=== PATIENT | male | born 2000 ===

== ENCOUNTER 2022-07-26 18:02 | Emergency (ER) | payer OTHER, SELFPAY ==
--- NOTE | ~2022-07-26 | CT_ITS ---
EXAMINATION: CT abdomen pelvis w con DATE: 07/26/2022 19:16 INDICATION: abd pain TECHNIQUE: Computed tomography (CT) of the abdomen and pelvis was performed with 100 mL Omnipaque-350 intravenous contrast. Automated exposure control and iterative reconstruction technique were employe d. The dose-length product was 295.35 mGy-cm. COMPARISON: None. FINDINGS: Motion artifact in the lower abdomen. Lower thorax: Unremarkable Liver: Normal. Biliary/Gallbladder: Gallbladder is partially contracted. No bile duct dilation. Pancreas: No mass or duct dilation. Spleen: Normal. Adrenals:No mass. Kidneys: No mass, stone, or hydronephrosis. GI tract: No small or large bowel dilation. Normal appendix. Mesentery/Peritoneum: No ascites, mass, or free air. Retroperitoneum: No mass. Pelvis: Pelvic organs are within normal limits. Soft Tissues: Soft tissues and body wall unremarkable. Bones: No acute osseous finding. IMPRESSION: Study limited by motion artifact in the lower abdomen. Within that constraint, no definite acute abdo minopelvic process is detected. Reviewed, dictated and finalized at location [facility] IMPRESSION: Study limited by motion artifact in the lower abdomen. Within that constraint, no definite acute abdominopelvic process is detected.
[2022-07-26 18:04] VITALS: BP 136/74; PULSE 72; RESP 16; TEMP 36.2; O2SAT 100
--- NOTE | 2022-07-26 18:33 | ED.GENADULT ---
HPI - General Adult General Chief complaint: Abdominal Pain Stated complaint: bilateral side pain x 2-3 weeks Time Seen by Provider: 07/26/22 18:10 Source: RN notes reviewed History of Present Illness HPI narrative: Patient presents emergency department from home for bilateral side pain. He states has been having pain in his bilateral sides for the past 2 weeks. States the pain is aching in nature and does not radiate states that nothing seems to make the pain better but does note that it gets worse when he stands he denies any fevers or chills he denies any chest pain or shortness of breath denies any nausea vomiting diarrhea or any other symptoms states he has not taken anything for the pain Related Data Allergies Allergy/AdvReac Type Severity Reaction Status Date / Time No Known Allergies Allergy Mild Verified 07/26/22 18:42 Review of Systems Review of Systems: Gen.: Denies fevers or chills ENT: Denies congestion Respiratory: Denies shortness of breath or cough CV: Denies chest pain or palpitations GI: HPI denies burning, urgency, frequency or hematuria Musculoskeletal: Denies back pain or muscle pain Neuro: Denies numbness, tingling, weakness or focal weakness Skin: Denies rash Except as documented, all other systems reviewed and negative [facility] Past Medical History Medical History (Updated 07/26/22 @ 19:36 by Daniel Rose DO) Patient denies significant medical history Social History Social History Smoking status: Never smoker Alcohol intake: never Exam Narrative: APPEARANCE: No acute distress, nontoxic, resting in bed EYES: EOMI HEENT: Normocephalic, atraumatic, OMM RESPIRATORY: No respiratory distress Clear to auscultation bilaterally with no rhonchi wheezing or rales. CARDIOVASCULAR: Regular rate and rhythm without murmurs rubs or gallops. ABDOMINAL: Soft, nondistended nontender to palpation in the right lower quadrant, left lower quadrant, right upper quadrant and left upper quadrant tender to palpation in the bilateral lateral abdomen no flank tenderness no rebound or guarding Back: No midline thoracic or lumbar tenderness to palpation MUSCULOSKELETAl: Moves all extremities. No clubbing, cyanosis or edema. NEURO: Awake and alert. Following commands, speech normal, no focal deficits SKIN:: Warm, dry. No rashes lesions or abrasions PSYCHIATRIC: Normal affect/mood, Course Course Emergency Course: Patient states pain is resolved following medication Patient states that they are feeling much better at this time. States abdominal pain has resolved. Repeat abdominal exam shows the patient's abdomen to be soft and nontender. Discussed with patient results of workup and diagnosis. Discussed need for follow-up with primary care physician, reasons to return to the emergency department in proper use of medication. Patient understands and agrees to current treatment plan patient does have frequent issues with constipation and has been feeling more constipated recently we will give magnesium Vital Signs Vital signs: Vital Signs Temperature 97.2 F L 07/26/22 18:04 Pulse Rate 72 07/26/22 18:04 Respiratory Rate 16 07/26/22 18:04 Blood Pressure 136/74 07/26/22 18:04 Pulse Oximetry 100 07/26/22 18:04 Oxygen Delivery Room Air 07/26/22 18:04 Temperature 97.2 F L 07/26/22 18:04 Pulse Rate 72 07/26/22 18:04 Respiratory Rate 16 07/26/22 18:04 Blood Pressure 136/74 07/26/22 18:04 Pulse Oximetry 100 07/26/22 18:04 Oxygen Delivery Room Air 07/26/22 18:04 Medical Decision Making MDM Narrative Medical decision making narrative: Patient's abdomen is soft without significant pain or signs of surgical abdomen on serial exams. Lab and x-ray evaluations are reviewed and patient is felt to be a reasonable candidate for outpatient management. Patient was instructed as to limitations of x-ray and laboratory evaluation and enco
[2022-07-26] MEDS: KETOROLAC 30 MG/ML VIAL (*BKC) IV PUSH (18:41)
[2022-07-26] MEDS: SODIUM CHLORIDE 0.9% IV 1,000 ML 999 ML IV CONT (18:41)
[2022-07-26 18:45] LABS: Basophils Absolute Auto 0.1 K/mm3 (0.0-0.1); Basophils Percent Auto 0.9 % (0.2-1.2); Eosinophils Absolute Auto 0.2 K/mm3 (0-0.3); Eosinophils Percent Auto 3.5 % (0-4.4); Hematocrit 44.1 % (42.0-52.0); Hemoglobin 15.3 g/dL (14.0-18.0); Immature Granulocyte Absolute 0.01 K/mm3 (0.00-0.031); Immature Granulocyte Percent A 0.2 % (0-0.5); Lymphocytes Absolute Auto 2.49 K/mm3 (0.9-3.2); Lymphocytes Percent Auto 39.1 % (18.3-44.2); Mean Corpuscular HGB Conc 34.7 g/dl (32-36); Mean Corpuscular Hemoglobin 31.2 pg (26-34); Mean Corpuscular Volume 89.8 fl (80-100); Mean Platelet Volume 9.8 fl (7.4-10.4); Monocytes Absolute Auto 0.6 K/mm3 (0.1-0.6); Monocytes Percent Auto 8.8 % (2.6-8.5); Neutrophils Percent Auto 47.5 % (45.5-73.1); Platelet Count Result 268 k/mm3 (150-375); Red Blood Count 4.91 M/mm3 (4.6-6.20); Red Cell Distribution Width 11.8 % (11.5-14.5); White Blood Count 6.4 K/mm3 (4.5-10.0)
[2022-07-26 18:48] LABS: Appearance Urine Clear (Clear); Bilirubin Urine Negative (Negative); Blood Urine Negative (Negative); Color Urine Yellow (Yellow); Glucose Urine UA Negative (Negative); Ketones Urine Negative (Negative); Leukocyte Esterase Ur Negative LEU/UL (Negative); Nitrate Urine Negative (Negative); Protein Urine Negative (Negative); Specific Grav Ur <= 1.005 (1.001-1.035); Urobilinogen Urine 0.2 mg/dL (<2.0); pH Urine 6.5 (5.0-9.0)
[2022-07-26 18:53] LABS: Add Urine Microscopic? NO
[2022-07-26 18:56] LABS: Alanine Aminotransferase 23 U/L (6-50); Albumin Level 4.9 g/dL (3.5-5.1); Alkaline Phosphatase 77 U/L (38-126); Anion Gap 9 mmol/L (8-16); Aspartate Amino Transferase 27 U/L (17-59); Blood Urea Nitrogen 13 mg/dL (9-20); Calcium 9.2 mg/dL (8.4-10.2); Carbon Dioxide 29 mmol/L (22-30); Chloride 101 mmol/L (98-107); Estimated CRCL calculation 129 ml/min; Estimated Glomerular Filt Rate > 60; Glucose 92 mg/dL (65-110); Lipase 130 U/L (23-300); Potassium 3.9 mmol/L (3.4-5.0); Sodium 139 mmol/L (137-145)
[2022-07-26 20:09] VITALS: BP 124/24; PULSE 68; RESP 30; TEMP 36.7; O2SAT 100
--- NOTE | 2022-08-24 15:00 | PC.NURSE ---
LATE ENTRY This note is being entered to document information to the patient's record. The following information was omitted on [07/26/22, by [Chelle Campuzano]. NS stop time 1934.
== END 2022-07-26 20:11 | disposition home or self-care (01) ==
PROVIDERS: Physician Assistant; Emergency Provider Emergency Medicine; PCP Family Medicine
DX: R10.9 Unspecified abdominal pain (principal)
CPT/HCPCS: 36415; 74177; 80053; 81003; 83690; 85025; 96361; 96374; 99284; J1885; J7030; Q9967